=== PATIENT | female | born 1995 | race Caucasian/White ===

== ENCOUNTER 2022-05-28 08:45 | Outpatient (CLI) | payer BC, SELFPAY ==
[2022-05-28 09:08] LABS: Glucose, Dipstick Normal (Normal); Ketone-Dipstick Negative (Negative); Leukocyte Esterase-Dipstick 500 /ul (Negative); Nitrite-Dipstick Negative (Negative); Occult Blood-Urine 250 /ul (Negative); Protein-Dipstick 100 mg/dl (Negative); Urine Bilirubin Dipstick Negative (Negative); Urine Clarity Sl. Cloudy (Clear); Urine Urobilinogen Normal (Normal)
[2022-05-28 09:10] VITALS: BP 125/68; PULSE 94
[2022-05-28 09:11] VITALS: TEMP 36.9
[2022-05-28 09:12] VITALS: PULSE 100; PULSE 96; O2SAT 100; O2SAT 94
[2022-05-28 09:12] LABS: Color, Urine SEE COMMENT BELOW (Yellow)
--- NOTE | 2022-06-05 17:31 | OB.TRI.PN ---
Progress Notes Progress Note: at 36w2d presents to for urinary complaints and abdominal pain. No vaginal bleeding or fluid leakage. Laboratory Studies: Laboratory Tests 05/28/22 Range/Units 09:00 Urine Color SEE COMMENT BELOW (Yellow) Urine Clarity Sl. Cloudy (Clear) Urine pH 8.0 (5.0 - 8.0) Ur Specific [place] 1.010 (1.002-1.030) Urine Protein 100 H (Negative) mg/dl Urine Glucose (UA) Normal (Normal) mg/dl Urine Ketones Negative (Negative) mg/dl Urine Occult Blood 250 H (Negative) /ul Urine Nitrite Negative (Negative) Urine Bilirubin Negative (Negative) mg/dL Urine Urobilinogen Normal (Normal) mg/dl Ur Leukocyte Esterase 500 H (Negative) /ul NST 135, moderate, accels, reactive Assessment & Plan (1) UTI (urinary tract infection): (2) Hematuria: PLAN: Plan 1) Presume UTI, urine culture sent. Will start on amoxil 875mg PO BID x 7 days 2) D/C home 3) PTL precautions reviewed.
== END 2022-05-28 10:23 | disposition home or self-care (01) ==
LOC: WPOUT 08:55 → WP 08:55
PROVIDERS: Referring Provider Advanced Practice Midwife; Visit Provider Advanced Practice Midwife
DX: O23.43 Unspecified infection of urinary tract in pregnancy, third trimester (principal); O99.891 Other specified diseases and conditions complicating pregnancy; R31.9 Hematuria, unspecified; Z79.899 Other long term (current) drug therapy; Z3A.36 36 weeks gestation of pregnancy
CPT/HCPCS: 59025; 59050; 81002; 87086; 87088; 99221; G0378

== ENCOUNTER 2022-06-16 05:05 | Inpatient (IN) | payer BC, SELFPAY ==
--- NOTE | 2022-06-14 11:18 | PCM.HP.BLA ---
History and Physical Date of Admission: 06/16/22 Pre-Op History and Physical ? HPI: The patient is a 26 year old female presenting for pre-operative visit. She is scheduled for , for REpeat elective cs at 39 weeks on 06/16/22. Procedure discussed along with risks, benefits and complications. Other alternatives discussed for management. Consent form signed? Yes. ? ? PAST MEDICAL HISTORY PAST MEDICAL HISTORY Diagnosis Date ? Closed head injury 05/21/2008 ? normal CT ? Dislocated finger 05/21/2008 ? right middle ? Generalized anxiety disorder ? ? Murmur ? ? childhood-does not take antibiotics prior to dental procedures ? Pre-eclampsia ? ? ? PAST SURGICAL HISTORY PAST SURGICAL HISTORY Procedure Laterality Date ? DELIVERY ONLY ? CURRENT MEDICATIONS Current Outpatient Medications Medication Sig Dispense Refill ? prental multivitamin 27 mg iron- 800 mcg tablet Take 1 tablet by mouth once daily. ? ? ? escitalopram oxalate (LEXAPRO) 10 mg tablet Take 10 mg by mouth once daily. ? ? ? cetirizine HCl (ZYRTEC ORAL) Take by mouth. ? ? ? aspirin, enteric coated (ASPIRIN, ENTERIC COATED) 81 mg EC tablet Take 81 mg by mouth once daily. ? ? ? No current facility-administered medications for this visit. ? ? ALLERGIES: Patient has no known allergies. ? PERSONAL HISTORY: SOCIAL HISTORY Social History ? Tobacco Use ? Smoking status: Never ? Smokeless tobacco: Never Vaping Use ? Vaping Use: Never used Substance Use Topics ? Alcohol use: No ? Drug use: No ? FAMILY HISTORY: FAMILY HISTORY FAMILY HISTORY Problem Relation Age of Onset ? Hypertension Mother ? ? Allergies Mother ? ? Breast Cancer Mother ? ? age 28, invasive ductal ? Headache Mother ? ? migraine ? No Known Problems Father ? ? Depression Sister ? ? Anxiety disorder Sister ? ? Anxiety disorder Brother ? ? Allergies Brother ? ? Diabetes Maternal Grandmother ? ? Hypertension Maternal Grandmother ? ? Breast Cancer Maternal Grandmother ? ? Hypertension Maternal Grandfather ? ? No Known Problems Paternal Grandmother ? ? Hypertension Paternal Grandfather ? ? ? REVIEW OF SYMPTOMS: negative except as noted above PHYSICAL EXAMINATION: ? VITALS: Blood pressure 110/72, weight 213 lb (96.6 kg), last menstrual period 09/16/2021. ? GENERAL: The patient is well nourished, well hydrated in no acute distress. , The patient is oriented to time, place, and person. NECK: full range of motion Abdomen: soft, gravid, non tender. ? IMPRESSION: @ 39 weeks ? PLAN: Repeat elective cs at 39 weeks. ? Pt has been counseled on risks/benefits and alternatives of surgery including but not limited to anesthesia, bleeding, infection, injury to pelvic structures including bowel, bladder, ureters and vessels. Pt wishes to proceed with surgery at this time. Risk for transfusion reviewed. Ok to accept blood products. ? Pre and post op instructions reviewed. Consent signed. ? I have reviewed and updated past medical and surgical history, medications and allergies Leia Mccarty MD
[2022-06-16] VITALS (15 sets, daily range): BP systolic 88–110; BP diastolic 46–72; PULSE 66–80; RESP 15–17; TEMP 36.2–37; O2SAT 95–99; BMI 37.7
[2022-06-16] MEDS: Lactated Ringers 1,000 ML 999 ML IV (05:30)
[2022-06-16 05:46] LABS: Absolute Lymphocyte Count 1.52 X10^3/uL (0.83-4.51); Absolute Neutrophil Count 4.6 X10^3/uL (2.0-7.7); Basophil# 0.01 X10^3/uL; Basophil% 0.2 % (0-1); Eosinophil# 0.06 X10^3/uL; Eosinophils% 0.9 % (0-5); Hematocrit 36.9 % (37-47); Hemoglobin 12.5 g/dL (12.0-15.0); Lymphocyte # 1.52 X10^3/ul (0.83-4.51); Lymphocyte % 23.3 % (19-41); Mean Corp Hgb Conc 33.9 g/dL (32-36); Mean Corpuscular Hgb 30.6 pg (27.0-32.0); Mean Corpuscular Volume 90.4 fL (81-99); Mean Platelet Vol. 9.9 fl (6.2-12.0); Monocyte# 0.34 X10^3/uL; Monocyte% 5.2 % (0-10); NRBC Flagged by Analyzer 0 % (0-5); Neutrophil # 4.55 X10^3/uL (2.7-7.7); Neutrophil % 69.8 % (47-70); POSITIVE COUNT YES; Platelet Count 164 K/mm3 (150-450); RBC Distribution Width SD 42.3 fl (35.1-43.9); Red Blood Count 4.08 M/mm3 (4.2-5.4); White Blood Count 6.5 K/mm3 (4.4-11.0)
[2022-06-16] MEDS: Acetaminophen 500 MG Tablet 1000 MG PO ×3 (06:01→18:13)
[2022-06-16 06:12] LABS: Differential Indicated SCAN CRITERIA MET
[2022-06-16] MEDS: Lactated Ringers 1,000 ML 150 ML IV (06:34)
[2022-06-16] MEDS: Sodium Citrate/Citric Acid 30 ML UDC PO (07:06)
[2022-06-16] MEDS: Cefazolin 2 GM in 0.9% Normal Saline 100 ML IV (07:10)
--- NOTE | 2022-06-16 08:08 | OP.PCM_ITS ---
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 She was then placed in the supine position. She was prepped and draped in the normal sterile fashion. Anesthesia was found to be adequate. At this time a Pfannenstiel skin incision was made with a knife was carried down to the underlying layer of the fascia. The fascial incision was then extended laterally using opposing traction. attention was then turned to the superior aspect of the fascial edge was grasped with 2 straight [place] clamps tented up and the rectus muscle dissected off sharply using curved [place] scissor. Attention was then turned to the inferior aspect where again [place] clamps were placed in the rectus muscles were tented up and the fascia was dissected off sharply using the curved [place] scissor. Rectus muscles were then in the midline bluntly and peritoneum was entered sharply. significant adhesions of bladder to anterior aspect of uterus. these were taken down using metezenbaum scissor. Gentle opposing traction was placed. Scalpel was used to make a uterine incision in a low transverse fashion. The uterus was then entered bluntly gentle opposing traction was placed to extend this incision. Membranes were ruptured clear. 's head was brought to the uterine incision was delivered atraumatically. Cord was clamped and cut infant was handed to the waiting nursery team. The Placenta was removed from the uterus. The uterus was then removed from the abdominal cavity. The uterus was cleared of all clots and debris using a lap. At this time the uterine incision was reapproximated using #1 Vicryl in a running locked fashion. Hemostasis was appreciated. a second imbricating layer was placed using #1 vicryl in figure of eight fashion. Posterior cul-de-sac was then cleared of all clots and debris. Uterus was placed back in the abdominal cavity. Gutters were cleared of all clots and debris. Uterine incision was reevaluated and noted to be of excellent hemostasis. At this time the peritoneum was grasped with Kellys reapproximated using #2 Vicryl suture in a running fashion. Fascia was then reapproximated using #1 Vicryl in a running fashion. Subcu layer was reapproximated with #2 0 plain gut suture in an interrupted fashion. Subcu layer was closed using 4-0 Monocryl in a Kwadwo needle in a subcu fashion. Dry sterile dressing was appli ed. Instrument lap needle count correct ?2. Anticipated normal postoperative course. Presentation: Positive for Vertex Amniotic Membrane Rupture Type: Artificial Amniotic Fluid Description: Clear Placental Delivery Description: Expressed Placenta Disposition: [facility] Cord Vessel Description: 3 Vessels Cord Entanglement: None A Gender: Female (1 minute): 9 (5 minute): 9 Delayed Cord Clamping: Yes Complications Risks of Surgery Discussed w/Patient: Bleeding, Anesthesia Risks, Infection, Need for Future C-Sections and Injury to surrounding structure(s) including bowel and bladder Complications: none
[2022-06-16] MEDS: Oxytocin 15 Units/NS 250ml 15 UNITS/250 ML IV.SOLN 83 UNITS IV (08:55)
[2022-06-16] MEDS: Ketorolac 30 MG/ML Syringe IV ×3 (09:20→21:20)
[2022-06-16] MEDS: Senna/Docusate Sodium 1 Tablet PO (10:34)
[2022-06-16] MEDS: Lactated Ringers 1,000 ML 100 ML IV (11:39)
--- NOTE | 2022-06-16 15:11 | NURSING ---
Call placed to and left message with Natalya NUNEZ to let Vanesa Connelly know about drainage on pt. mepilex dressing and to see if she could asses pt. when she comes in later today.
[2022-06-16] MEDS: 0.9% Saline Lock 10 ML Syringe IV ×2 (15:27→21:21)
--- NOTE | 2022-06-16 17:39 | CPS ---
IS given and instructed by nurse
[2022-06-16] MEDS: Enoxaparin 40 MG/0.4 ML Syringe SC (19:54)
--- NOTE | 2022-06-16 20:33 | CASEMGMT ---
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 On Lexapro SW met with MOB and introduced self and role. MOB gave verbal consent to speak to her in the presence of the FOB. FOB was holding the nb. Both MOB and FOB appeared to be appropriately bonding with the nb. Mom: Carol PNC: [facility] Control: MARIA ISABEL is getting a vasectomy. Baby: Shahzad : 06/16/2023 Apgars: ?9/9 Weight: 8# Chartered Wealth Manager: Isaac LUISANA reports that breast feeding is going ?good? MOB' other children: Margarito, age 2 Housing: MOB resides in a home with the FOB, their 2-year-old son and now the nb. Transportation: MOB reports she has access to transportation and is able to drive. Supplies: ?MOB reports she has all nb supplies including diapers, crib, bassinette, clothing and carseat. Support: MOB said that her and mother will be a support. LUISANA?s mother is local. Education Level: LUISANA has a high school, college and master?s degree. No learning issues. Masters in Intervention. 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 LUISANA plans to take 8 weeks off work. Agency Involvement: ?LUISANA reports no JFS, WIC, HMG, Legal or CPS involvement. LUISANA reports that she had counseling when she was in middle school when her parents . 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 He reports that he will take a ?little time? off and that amount of time off is still being determined. Other Children: MARIA ISABEL is father to Margarito NICOLAS MH/ AOD/DV: FOMayra reports he has anxiety and sees a psychiatrist and is on medication, which is helpful. Maternal MH History: MOB?s chart notes that she has generalized anxiety disorder. MOB reports she is currently on Lexapro which is helpful. MOB said that she began to take Lexapro at 38 weeks with their son and it was helpful. MOB plans to continue to take the Lexapro during her post- period. MOB reports no PPD during her first . MOB reports no SI/HI. MOB reports no psych hospitalization. MOB and FOB were educated on Shaken Baby Syndrome, PPD and Safe Sleeping. MOB reports no alcohol or drug use. MOB is not a smoker MOB reported on admission no DV, SI or HI. MOB voiced she is hoping for discharge on Sunday as she misses her son. Plan: Home at discharge Maye HENDERSON
[2022-06-17] MEDS: Acetaminophen 500 MG Tablet 1000 MG PO ×3 (00:08→12:32)
[2022-06-17 00:10] VITALS: BP 106/63; PULSE 69; RESP 16; TEMP 36.2
[2022-06-17] MEDS: Ketorolac 30 MG/ML Syringe IV (03:06)
[2022-06-17] MEDS: 0.9% Saline Lock 10 ML Syringe IV (03:06)
[2022-06-17 03:10] VITALS: BP 108/69; PULSE 79; RESP 18; TEMP 36.6; O2SAT 97
--- NOTE | 2022-06-17 03:31 | DS.PCM_ITS ---
Providers Date of Admission: 06/16/22 Primary Care Physician: Dr. Gabriel Hanson MD Reason For Visit: REPEAT /CSECTION DELIVERY Diagnosis Discharge Diagnosis (1) Status post repeat low transverse section: Status: Acute Code(s): Z98.891 - History of uterine scar from previous surgery (2) Care and examination of lactating mother: Status: Acute Code(s): Z39.1 - Encounter for care and examination of lactating mother Medications at Discharge Home Medications escitalopram oxalate 10 mg tablet (Lexapro) 10 mg PO DAILY anx/dep 05/28/22 Hospital Course Operations section Summary of Care Provided Hospital Course: Patient for repeat section. Hospital course was uneventful. Physical Exam Narrative Patient seen at bedside. Pain controlled. Denies any headache, vision changes, SOB or CP. Dressing has small amount of drainage that is marked. with minimal support. Desires discharge home at 24 hours. Const alert and no apparent distress General Appearance: cooperative and comfortable Exam Limitations: no limitations HEENT normocephalic Eyes General Eye: normal appearance of both eyes Neck full ROM General: normal visual inspection Chest Chest: symmetrical chest wall rise Resp normal respiratory effort and normal air movement Effort and Inspection: symmetric chest movement Auscultation: clear to auscultation bilaterally Cardio regular rate and regular rhythm GI normal to inspection, nondistended, normoactive bowel sounds Back/Spine normal ROM Extremity full ROM and no calf tenderness General Extremity: normal exam except as noted Skin no rashes or lesions noted Neuro CN's II-XII intact bilaterally Psych mental status grossly normal Weight / BMI Weight Weight: 213 lb Body Mass Index (BMI) 37.7 ABG / Lab / Microbiology Data Result Diagrams: 06/16/22 05:30 Laboratory: Laboratory Results - last 24 hr 06/16/22 05:30: WBC 6.5, RBC 4.08 L, Hgb 12.5, Hct 36.9 L, MCV 90.4, MCH 30.6, MCHC 33.9, RDW Std Deviation 42.3, RDW Coeff of Pat 13.0, Plt Count 164, MPV 9.9, Immature Gran % (Auto) 0.600, Neut % (Auto) 69.8, Lymph % (Auto) 23.3, [place] % (Auto) 5.2, Eos % (Auto) 0.9, Baso % (Auto) 0.2, Absolute Neuts (auto) 4.6, Absolute Lymphs (auto) 1.52, Nucleated RBC % 0, Plt Morphology Comment 06/16/22 05:30: Blood Type Not Reportable, Antibody Screen NEGATIVE 06/16/22 05:30: Blood Type A POSITIVE D/C Instructions Discharge Diet: No restrictions Discharge Activity: May Shower May resume sexual activity in: 6-8 weeks Weight Bearing Status: Weight bearing as tolerated Lifting Restrictions: 25 lbs Call your doctor if your incision/area has: Continuous Slow Oozing, Sudden Increased Bleeding, Increased Pain/ Swelling, Increased Redness, Foul Smelling Discharge and Swelling at the incision site Call your doctor if you observe: Fever of 101 or Higher, Using more than 1 pad per hour, Shortness of breath, Chest pain, Calf discomfort and Uncontrolled pain Suture Line Care: Avoid Pulling/Pushing Change Dressing in: leave in place till F/U Please Follow Up With: Vanesa Connelly CNM When: 1 week Meaningful Use Info Meaningful Use Diagnoses (Choose all that apply): None applicable Discharge Plan Admission Admit Date/Time: 06/16/22 05:05 Primary Reason for Your Visit: Repeat section Attending Provider: Leia Gonzalez Primary Care Provider: Gabriel Hanson Discharge Orders/Prescriptions Prescriptions: Continued escitalopram oxalate [Lexapro] 10 mg Tablet 10 mg PO DAILY Discontinued aspirin [Baby Aspirin] 81 mg Tablet,Chewable 81 mg PO DAILY Zyrtec 10 mg Capsule 10 mg PO DAILY Referrals / Follow Up: Gabriel Hanson MD [Primary Care Provider] - Disposition Disposition (needs filled in before D/C Order can be placed): Home, Self Care
[2022-06-17 05:18] LABS: Hematocrit 32.8 % (37-47); Hemoglobin 11.1 g/dL (12.0-15.0); Mean Corp Hgb Conc 33.8 g/dL (32-36); Mean Corpuscular Hgb 31.4 pg (27.0-32.0); Mean Corpuscular Volume 92.9 fL (81-99); Platelet Count 126 K/mm3 (150-450); RBC Distribution Width CV 13.2 % (11.6-14.6); RBC Distribution Width SD 43.7 fl (35.1-43.9); Red Blood Count 3.53 M/mm3 (4.2-5.4); White Blood Count 10.4 K/mm3 (4.4-11.0)
[2022-06-17 08:02] VITALS: BP 104/63; PULSE 68; RESP 16; TEMP 36.4; O2SAT 96
[2022-06-17] MEDS: Enoxaparin 40 MG/0.4 ML Syringe SC (09:36)
[2022-06-17] MEDS: Senna/Docusate Sodium 1 Tablet PO (09:37)
[2022-06-17] MEDS: Escitalopram Oxalate 10 MG Tablet PO (09:37)
[2022-06-17] MEDS: Loratadine 10 MG Tablet PO (09:37)
[2022-06-17] MEDS: Ibuprofen 600 MG Tablet PO (09:39)
[2022-06-17 14:12] VITALS: BP 105/50; PULSE 76; RESP 15; TEMP 36.3; O2SAT 96
== END 2022-06-17 14:35 | disposition home or self-care (01) | DRG 788 ==
PROVIDERS: Admitting Provider Obstetrics & Gynecology; Visit Provider Obstetrics & Gynecology
PROC: 10D00Z1 Extraction of Products of Conception, Low, Open Approach (ICD-10-PCS; CPT 59514; principal; 2022-06-16 06:55)
DX: O34.211 Maternal care for low transverse scar from previous cesarean delivery (principal); F41.1 Generalized anxiety disorder; Z37.0 Single live birth; Z3A.39 39 weeks gestation of pregnancy; O99.344 Other mental disorders complicating childbirth; Z79.82 Long term (current) use of aspirin; Z79.899 Other long term (current) drug therapy
CPT/HCPCS: 59050; 85025; 85027; 86850; 86900; 86901; 99221; J7120; A4216; G0378; J2405